=== PATIENT | male | born 1970 | race Caucasian/White ===

== ENCOUNTER 2017-06-29 04:59 | Emergency (ER) | payer BC ==
[~2017-06-29] VITALS: Ht 175.3 cm; Wt 104.5 kg
[2017-06-29 05:01] VITALS: TEMP 36.6; Ht 175.3 cm; Wt 104.5 kg
[2017-06-29] MEDS ORDERED: PROPARACAINE HCL 0.5% OP SOLN 15 ML BTL OP STA (05:11)
[2017-06-29] MEDS ORDERED: CIPROFLOXACIN HCL 0.3% OP SOLN 2.5 ML BTL OP STA (05:32)
--- NOTE | 2017-06-29 05:35 | EMERGENCY ROOM VISIT NOTE ---
ED Visit Note First contact with patient: 05:13 CHIEF COMPLAINT: Foreign body of the eye HISTORY OF PRESENT ILLNESS: This 47-year-old patient presents to the emergency department with complaining of pain and foreign body sensation in the left eye. Patient was cutting metal and thinks he got a piece of metal in his eye and was not wearing eye protection. There has been a constant moderate pain and irritation, redness and tearing in the eye. The vision has not been decreased over all. The patient does not wear contacts. The patient rates the pain as 4/10. The patient has had previous injuries to this eye. Tetanus shot is up to date. REVIEW OF SYSTEMS: A 6 system review of systems was completed with positives and pertinent negatives listed in the HPI. ALLERGIES: Penicillin MEDICATIONS: None PMH: Corneal abrasion SOCIAL HISTORY: Tobacco use PHYSICAL EXAM: Vital Signs: Reviewed Nurse's notes, vital signs hypertensive. Visual acuity reviewed from nursing. GENERAL: This is a pleasant male, in no acute distress, but who is uncomfortable from the eye problem. Well-developed well-nourished. EYES: The pupils are equal round and reactive to light and accommodation. EOMs are full and without tenderness. There is no discharge from the left eye which is injected. There is a little piece visible on the cornea. There is no foreign body visible under the eyelid after lid eversion. Metal piece foreign body was seen embedded in the cornea under slit lamp exam. The cornea was clear and no hyphema was seen. Fluorescein uptake was observed with ultraviolet light significant for a corneal abrasion only around the previous location of the foreign body. Negative Ping sign. EMERGENCY DEPARTMENT COURSE: I examined the patient. Alcaine 2 drops were placed in the patient's left eye. A slit lamp exam was performed as above. The metal foreign body was removed using a Q-tip and 18-gauge needle was used to remove most of the rust ring. Ciloxan two drops was placed in the patient's left eye. Patient was advised follow-up with ophthalmology in a day or 2 or here in the ER sooner for eye pain, visual bowels, worsening signs or symptoms or as needed. The patient was discharged home in good condition. DIAGNOSIS: Foreign body with subsequent corneal abrasion of the left eye DISCHARGE INSTRUCTIONS AND TREATMENT: Use Ciloxin two drops in left eye every two hours while awake for two days; then two drops every four hours while awake for three days. Use Ibuprofen 600 mg or Tylenol 1000 mg every 6 hrs as needed for moderate pain. Return to the ED or see your eye doctor in 24-48 hours for a recheck. Return to the ED for increasing pain or changes in vision. Current/Historical Medications No Active Prescriptions or Reported Meds Allergies Coded Allergies: Penicillins (Unverified Allergy, Unknown, UNKNOWN, 02/07/16) Vital Signs Date Time Temp Pulse Resp B/P (MAP) Pulse Ox O2 Delivery O2 Flow Rate FiO2 06/29/17 05:01 36.6 78 18 164/92 95 Room Air Medications Administered Medications (Trade) Dose Ordered Sig/Quentin Route Start Time Stop Time Status Last Admin Dose Admin Proparacaine HCl (Alcaine 0.5% Oph Soln) 2 drops NOW STAT OP 06/29/17 05:11 06/29/17 05:12 DC 06/29/17 05:11 2 DROPS Departure Information Prescriptions No Active Prescriptions or Reported Meds Referrals No Doctor, Assigned (PCP) Patient Instructions My [facility]
[2017-06-29 05:45] VITALS: BP 151/81; PULSE 72; O2SAT 96
== END 2017-06-29 05:45 | disposition home or self-care (01) ==
LOC: C.EDB 05:00 → C.EDA 05:45
DX: T15.02XA Foreign body in cornea, left eye, initial encounter (principal); W31.1XXA Contact with metalworking machines, initial encounter; Z72.0 Tobacco use